=== PATIENT | female | born 1995 | race Caucasian/White ===

== ENCOUNTER 2022-04-22 11:01 | Emergency (ER) | payer OTHER ==
[~2022-04-22] VITALS: Ht 170.2 cm; Wt 100.0 kg
[2022-04-22] MEDS ORDERED: IBUPROFEN 600MG TABLET PO ONE (13:15)
[2022-04-22] MEDS ORDERED: IBUP-2029 PO (14:54)
[2022-04-22 15:24] VITALS: BP 115/65
== END 2022-04-22 15:26 | disposition home or self-care (01) ==
LOC: ER 11:38
DX: R51.9 Headache, unspecified (principal)
CPT/HCPCS: 99282